=== PATIENT | female | born 1985 | race Caucasian/White ===

== ENCOUNTER 2024-03-20 17:23 | Inpatient (IN) | payer OTHER, BC ==
[~2024-03-20 17:23] MED LIST: Ropivacaine 0.2% PF 2 MG/ML 20 ML SDV ONE
[2024-03-20] MEDS ORDERED: Lidocaine 1% 50 ML MDV INJECT PRN (17:40)
[2024-03-20] MEDS ORDERED: Ondansetron 4 MG/2 ML SDV IVPUSH PRN (17:40)
[2024-03-20] MEDS ORDERED: Misoprostol 200 MCG Tab BUCCAL PRN (17:40)
[2024-03-20] MEDS ORDERED: Sodium Chloride 0.9% 10 ML Syringe FLUSH PRN (17:40)
[2024-03-20] MEDS ORDERED: Methylergonovine 0.2 MG/1 ML Amp IM PRN (17:40)
[2024-03-20] MEDS ORDERED: Nalbuphine 10 MG/1 ML Vial IVPUSH PRN (17:40)
[2024-03-20] MEDS ORDERED: Oxytocin/0.9 % Sodium Chloride 30 UNIT/500 ML BAG IV SCH (17:45)
[2024-03-20 18:00] LABS: BASOPHILS PERCENT AUTO 0.2 % (0.0-1.0); EOSINOPHILS PERCENT AUTO 0.2 % (0.0-6.0); HEMATOCRIT 35.3 % (37.0-47.0); HEMOGLOBIN 11.6 gm/dl (12.0-16.0); IMMATURE GRAN ABSOLUTE AUTO 0.06 K/mm3 (0.00-0.05); IMMATURE GRAN PERCENT AUTO 0.5 % (0.0-0.4); LYMPHOCYTES ABSOLUTE AUTO 1.4 K/mm3 (1.0-4.8); LYMPHOCYTES PERCENT AUTO 11.1 % (24.0-44.0); MEAN CORPUSCULAR HEMOGLOBIN 29.3 pg (28.0-32.0); MEAN CORPUSCULAR HGB CONC 32.9 g/dl (32.0-36.0); MEAN CORPUSCULAR VOLUME 89.1 fl (83.0-99.0); MEAN PLATELET VOLUME 11.7 fl (9.4-12.3); MONOCYTES ABSOLUTE AUTO 0.8 K/mm3 (0.0-0.8); MONOCYTES PERCENT AUTO 6.2 % (0.0-8.0); NEUTROPHILS ABSOLUTE AUTO 10.4 K/mm3 (1.8-7.7); NEUTROPHILS PERCENT AUTO 81.8 % (41.0-71.0); PLATELET COUNT,PLT 165 K/mm3 (150-400); RED BLOOD CELL COUNT 3.96 M/mm3 (4.10-5.30); WHITE BLOOD CELL COUNT,WBC 12.74 K/mm3 (3.9-11.3)
[2024-03-20] MEDS: Oxytocin/0.9 % Sodium Chloride 30 UNIT/500 ML BAG IV SCH (19:39)
[2024-03-20] MEDS: Lactated Ringers 1,000 ML IV SCH (19:39)
[2024-03-20] MEDS ORDERED: diphenhydrAMINE 50 MG/ML SDV IVPUSH PRN (20:35)
[2024-03-20] MEDS: fentaNYL 100 MCG/2 ML SDV EPIDUR PRN (20:47)
[2024-03-20] MEDS: Bupivacaine/fentaNYL/NS 100 ML Bag EPIDUR PRN (20:58)
[2024-03-20] MEDS: ePHEDrine 50 MG/ML SDV IVPUSH PRN (21:46)
[2024-03-21] MEDS: Sodium Chloride 0.9% 10 ML Syringe FLUSH SCH (02:14)
[2024-03-21] MEDS ORDERED: Hydrocortisone Acetate 25 MG Supp RECTAL PRN (15:03)
[2024-03-21] MEDS ORDERED: Docusate Sodium 100 MG Cap PO PRN (15:03)
[2024-03-21] MEDS ORDERED: Oxytocin/Lactated Ringers 30 UNIT/500 ML BAG IV SCH (15:03)
[2024-03-21] MEDS ORDERED: Acetaminophen 325 MG Tab PO PRN (15:03)
[2024-03-21] MEDS ORDERED: Magnesium Hydroxide 400 MG/5 ML Susp 30 ML Cup PO PRN (15:03)
[2024-03-21] MEDS: Benzocaine/Menthol 20%-0.5% Spray 78 GM Cannister TOP PRN (15:38)
[2024-03-21] MEDS: Witch Hazel Medicated Pads 40/Jar TOP PRN (15:38)
[2024-03-21] MEDS: Ibuprofen 600 MG Tab PO SCH (17:07)
[2024-03-22] MEDS ORDERED: Prenatal Multivitamin with Calcium/Folic Acid/Iron Tab PO SCH (09:00)
== END 2024-03-21 20:59 | DRG 807 ==
LOC: JD.OBCHECK 17:23 → JD.OB 17:24 → JD.OBCHECK 19:30 → JD.OB 19:31 → OBSVTOIN 03-21 13:40 → JD.OB 03-21 13:41
PROVIDERS: ADMIT Obstetrics & Gynecology; ATTEND Obstetrics & Gynecology
PROC: 10E0XZZ Delivery of Products of Conception, External Approach (ICD-10-PCS; principal; 2024-03-21)
PROC: 10907ZC Drainage of Amniotic Fluid, Therapeutic from Products of Conception, Via Natural or Artificial Opening (ICD-10-PCS; 2024-03-21)
PROC: 0HQ9XZZ Repair Perineum Skin, External Approach (ICD-10-PCS; 2024-03-21)
PROC: 3E0R3BZ Introduction of Anesthetic Agent into Spinal Canal, Percutaneous Approach (ICD-10-PCS; 2024-03-21)
PROC: 00HU33Z Insertion of Infusion Device into Spinal Canal, Percutaneous Approach (ICD-10-PCS; 2024-03-21)
DX: O99.344 Other mental disorders complicating childbirth (principal); Z37.0 Single live birth; Z3A.39 39 weeks gestation of pregnancy; O70.1 Second degree perineal laceration during delivery; O69.81X0 Labor and delivery complicated by cord around neck, without compression, not applicable or unspecified; O77.0 Labor and delivery complicated by meconium in amniotic fluid; O76 Abnormality in fetal heart rate and rhythm complicating labor and delivery; F42.9 Obsessive-compulsive disorder, unspecified
CPT/HCPCS: 36415; 51701; 59025; 59409; 85025; 86592; 86850; 86900; 86901; A9270-GY; C1758; J2795; J3010; J3490; J7120; J7999